=== PATIENT | male | born 1965 | race Caucasian/White ===

== ENCOUNTER → 2018-04-06 10:17 | Outpatient (CLI) | payer BC ==
[2010-12-01 22:05] VITALS: BMI 31.2
== END | disposition home or self-care (01) ==
LOC: D.US 10:17
DX: R22.41 Localized swelling, mass and lump, right lower limb (principal)

== ENCOUNTER 2019-04-20 01:46 | Inpatient (IN) | payer OTHER ==
[~2019-04-20] VITALS: Ht 170.2 cm; Wt 81.8 kg
[2019-04-20] MEDS ORDERED: ZOCOR80 MG PO (02:02)
[2019-04-20] MEDS ORDERED: GLUCOPHAGE1000 MG PO (02:02)
[2019-04-20] MEDS ORDERED: FENOGLIDE40 MG PO (02:03)
--- NOTE | 2019-04-20 02:40 | NUR ---
PT LEFT UNIT VIA WHEELCHAIR FOR ORDERED CT AT THIS TIME.
[2019-04-20 02:43] LABS: BASOPHILS 0.1 % (0-2); EOSINOPHILS 0.9 % (0-7); HEMATOCRIT 40.3 % (42.0-54.0); IMMATURE GRANULOCYTES 1.3 % (0-5); MCH 31.3 pg (26.0-34.0); MCHC 34.7 g/dL (31.0-37.0); MEAN PLATELET VOLUME 10.8 fL (7.4-10.4); MONOCYTES 3.7 % (2-11); RBC 4.48 10x6/uL (4.20-6.10); RDW 13.4 % (11.5-14.5); WBC 11.3 10x3/uL (4.8-10.8)
[2019-04-20 02:48] LABS: PLATELET COUNT 238 10x3/uL (130-400)
[2019-04-20 02:52] LABS: CALC OSMOLALITY 292 mosm/kg (275-300); CALCIUM 9.4 mg/dL (8.5-10.1); CARBON DIOXIDE 24.5 mmol/L (21.0-32.0); CHLORIDE - SERUM 99 mmol/L (98-107); CREATININE - SERUM 1.3 mg/dL (0.6-1.3); POTASSIUM - SERUM 4.5 mmol/L (3.5-5.1); SODIUM 137 mmol/L (136-145); UREA NITROGEN 20 mg/dL (7-18); eGFR NON AFRICAN AMERICAN 61 mL/min (90-120)
--- NOTE | 2019-04-20 02:53 | NUR ---
URINE SENT TO LAB
[2019-04-20 02:55] LABS: GLUCOSE 387 mg/dL (74-106)
[2019-04-20 03:01] LABS: ALBUMIN 4.3 g/dL (3.4-5.0); ALKALINE PHOSPHATASE 72 U/L (30-120); ALT (SGPT) 33 U/L (10-68); AMYLASE - SERUM 63 U/L (25-115); BILIRUBIN - TOTAL 0.62 mg/dL (0.2-1.3); LIPASE 597 U/L (73-393); PROTEIN - SERUM 7.9 g/dL (6.4-8.2); TROPONIN-I < 0.017 ng/mL (0.000-0.060)
[2019-04-20] MEDS ORDERED: ZOFRAN4 MG PO (03:22)
[2019-04-20] MEDS ORDERED: NORCO-7.51 TAB PO (03:22)
[2019-04-20 03:24] LABS: APPEARANCE CLEAR (CLEAR); BILIRUBIN NEGATIVE (NEGATIVE); COLOR YELLOW (YELLOW); GLUCOSE 1000 mg/dL (NEGATIVE); KETONE NEGATIVE (NEGATIVE); NITRITE NEGATIVE (NEGATIVE); PROTEIN NEGATIVE (NEGATIVE); UROBILINOGEN NORMAL (NORMAL)
--- NOTE | 2019-04-20 03:36 | NUR ---
FSBS 338
[2019-04-20 04:38] LABS: INR 0.9 (0.85-1.17); PROTIME 12.1 SECONDS (11.6-15.0)
[2019-04-20] MEDS ORDERED: ZYLOPRIM100 MG PO (05:22)
[2019-04-20] MEDS ORDERED: LISINOPRIL5 MG PO (05:22)
[2019-04-20 05:23] VITALS: BP 133/74; BMI 27.3
--- NOTE | 2019-04-20 05:40 | NUR ---
RECIEVED REPORT FROM ER NURSE, PT ARRIVED BY WHEELCHAIR, SPOUSE AT BEDSIDE. VSS, AAOX4, NO S/S OF PAIN OF DISTRESS. PT DENIES ANY N/V AT THIS TIME. DENIES ABD PAIN. ALTHOUGH PT STATES HE FEELS PRESSURE/ACHING ON PALPATION OF RLQ. ADM ASSESSMENT COMP. PT DENIES ANY FURTHER NEEDS AT THIS TIME. WILL CPOC. CL WITHIN REACH, BED IN LOW, SR UP X2. PT ORIENTED TO THE ROOM.
[2019-04-20 09:09] VITALS: BP 147/86
[2019-04-20 12:34] VITALS: BP 125/77
[2019-04-20 14:24] VITALS: BMI 27.2
[2019-04-20 16:45] VITALS: BP 125/80
--- NOTE | 2019-04-20 19:47 | NUR ---
EVENING ROUND COMPLETED. VSS, AAOX4, NO S/S OF PAIN OR DISTRESS. PT NPO. PT PT DENIES ANY FURTHER NEEDS AT THIS TIME. WILL CTM. CL WITHIN REACH.
[2019-04-20 20:00] VITALS: BP 118/78
[2019-04-21] VITALS: BP 127/74
[2019-04-21 04:00] VITALS: BP 128/79
[2019-04-21 05:13] LABS: BASOPHILS 0.1 % (0-2); EOSINOPHILS 0.6 % (0-7); HEMATOCRIT 38.2 % (42.0-54.0); HEMOGLOBIN 12.4 g/dL (13.5-17.5); IMMATURE GRANULOCYTES 0.5 % (0-5); LYMPHOCYTES 17.9 % (15-50); MCH 29.8 pg (26.0-34.0); MCHC 32.5 g/dL (31.0-37.0); MCV 91.8 fL (80.0-100.0); MEAN PLATELET VOLUME 10.4 fL (7.4-10.4); MONOCYTES 6.5 % (2-11); NEUTROPHILS 74.4 % (40-80); PLATELET COUNT 209 10x3/uL (130-400); RBC 4.16 10x6/uL (4.20-6.10); RDW 13.7 % (11.5-14.5); WBC 9.4 10x3/uL (4.8-10.8)
[2019-04-21 05:46] LABS: ALBUMIN 3.5 g/dL (3.4-5.0); ANION GAP 13.3 mmol/L (8-16); BILIRUBIN - TOTAL 0.64 mg/dL (0.2-1.3); CALCIUM 8.7 mg/dL (8.5-10.1); CARBON DIOXIDE 27.1 mmol/L (21.0-32.0); MAGNESIUM - SERUM 1.9 mg/dL (1.8-2.4); POTASSIUM - SERUM 4.4 mmol/L (3.5-5.1); PROTEIN - SERUM 6.8 g/dL (6.4-8.2)
[2019-04-21 05:48] LABS: CREATININE - SERUM 1.7 mg/dL (0.6-1.3)
[2019-04-21] MEDS ORDERED: GLYBURIDE5 M1 PO (08:01)
[2019-04-21] MEDS ORDERED: ZOCOR80 MG PO (08:02)
[2019-04-21 10:20] VITALS: BP 117/73
[2019-04-21 12:11] LABS: AMYLASE - SERUM 34 U/L (25-115); LIPASE 113 U/L (73-393)
[2019-04-21 13:49] VITALS: BP 142/78
[2019-04-21 14:01] VITALS: Ht 170.2 cm; Wt 81.8 kg
[2019-04-21 15:23] VITALS: BP 100/64
--- NOTE | 2019-04-21 15:28 | NUR ---
PT BACK TO ROOM FROM PACU ON BED. POST OP STABILITY VITALS DONE. FAMILY AT BEDSIDE. PT WITHOUT PAIN OR NAUSEA AT PRESENT. INSTRUCTED ON DIET AND POSSIBLE DC PLANS.
--- NOTE | 2019-04-21 19:10 | NUR ---
BEDSIDE REPORT RECEIVED FROM DAY SHIFT, PT CARE ASSUMED. INTRODUCED SELF AND WROTE NAME ON BOARD. PT LYING IN BED, WATCHING TV, AAOX4. DENIES ANY NEEDS AT THIS TIME. BED IN LOWEST POSITION, SR X1, CALL LIGHT WITHIN REACH. WILL CONTINUE TO MONITOR.
[2019-04-21 20:00] VITALS: BP 129/74
[2019-04-22] VITALS: BP 114/70
[2019-04-22 04:00] VITALS: BP 117/68
[2019-04-22 05:24] LABS: ALBUMIN 3.3 g/dL (3.4-5.0); ANION GAP 9.5 mmol/L (8-16); BASOPHILS 0 % (0-2); BILIRUBIN - TOTAL 0.81 mg/dL (0.2-1.3); CALCIUM 8.7 mg/dL (8.5-10.1); CARBON DIOXIDE 28.5 mmol/L (21.0-32.0); EOSINOPHILS 2.2 % (0-7); HEMATOCRIT 37.3 % (42.0-54.0); HEMOGLOBIN 12.4 g/dL (13.5-17.5); IMMATURE GRANULOCYTES 0.8 % (0-5); LYMPHOCYTES 28.4 % (15-50); MCH 30.8 pg (26.0-34.0); MCHC 33.2 g/dL (31.0-37.0); MCV 92.8 fL (80.0-100.0); MEAN PLATELET VOLUME 10.3 fL (7.4-10.4); MONOCYTES 6.2 % (2-11); NEUTROPHILS 62.4 % (40-80); PLATELET COUNT 213 10x3/uL (130-400); PROTEIN - SERUM 6.9 g/dL (6.4-8.2); RBC 4.02 10x6/uL (4.20-6.10); RDW 13.6 % (11.5-14.5); WBC 6.5 10x3/uL (4.8-10.8)
[2019-04-22 05:29] LABS: CREATININE - SERUM 1.2 mg/dL (0.6-1.3)
--- NOTE | 2019-04-22 08:41 | NUR ---
PT LAYING SUPINE, RR EVEN AND UNLABORED. DENIES NEEDS OR PAIN AT THIS TIME. BED IN LOWEST POSITION. CALL LIGHT WITHIN REACH. WILL CONTINUE TO MONITOR.
[2019-04-22 09:52] VITALS: BP 110/71
[2019-04-22 12:00] VITALS: BP 108/66
--- NOTE | 2019-04-22 15:10 | MORECARE ---
CASE MANAGEMENT DISCHARGE SUMMARY PATIENT: ANGELY FARRAR UNIT: [id number] ADM DATE: 04/20/19 AGE: 54 : 63 SEX: M ROOM/BED: D.2139 AUTHOR: ADONIS HERNANDEZ PHYSICIAN: REFERRING PHYSICIAN: CHRISTOS GREEN MD DATE OF SERVICE: 04/22/19 Discharge Plan Patient Name: ANGELY FARRAR Facility: [facility]:[place] : 1965 Planned Disposition: Anticipated Discharge Date: Discharge Date: Expected LOS: Initial Reviewer: [email or web address] Initial Review Date: 04/22/2019 Generated: 04/22/19 4:10 pm Comments DCP- Discharge Planning Updated by [email or web address]: Emerita Maldonado on 04/22/19 2:[address] Patient Name: ANGELY FARRAR Admission Status: ER Accout number: [id number] Admission Date: 04-20-2019 : 1965 Admission Diagnosis: Attending: CHRISTOS GREEN Current LOS: 2 Anticipated DC Date: Planned Disposition: Primary Insurance: [facility] PPO Discharge Planning Comments: CM MET WITH PATIENT ABOUT DC PLANNING/NEEDS AFTER OBTAINING VERBAL CONSENT. PATIENT PLANS TO DC TO HOME WITH . AT BEDSIDE, DENIES NEEDS FOR HH , REHAB OR EQUIPMENT. Dolphin Trainer: Emerita Maldonado DCPIA - Discharge Planning Initial Assessment Updated by [email or web address]: Emerita Maldonado on 04/22/19 3:06 pm * Is the patient Alert and Oriented? Yes * PCP ALLEGRA * [facility] * Equipment None * Community resources currently utilized None * Additional services required to return to the preadmission environment? No * Can the patient safely return to the preadmission environment? Yes * Has this patient been hospitalized within the prior 30 days at any hospital? No Patient Name: ANGELY FARRAR Page 99977 at 1510 All edits/amendments must be made on the electronic document DICTATION DATE: 04/22/19 1510 TELESALES SPECIALIST: CINTHIA 04/22/19 1510 RPT#: [id number] DC DATE: STATUS: ADM IN [facility] [address] [place] [address] END OF REPORT
--- NOTE | 2019-04-22 15:59 | OP ---
PATIENT NAME: ANGELY FARRAR MEDICAL RECORD: [id number] :63 LOCATION:D.M2 D.2139 ADMISSION DATE:04/20/19 SURGEON: LUCAS CAMERON MD DATE OF OPERATION: 04/20/2019 SURGEON: Lucas Cameron MD ANESTHESIA: General anesthesia by Jessica Montesinos CRNA. DIAGNOSIS: Right proximal ureteral stone, 7 mm. PROCEDURE: Cystoscopy, right retrograde pyelogram, right ureteral stent insertion 6-Vincentian x 24 cm with string attached. BLOOD LOSS: None. FINDINGS: Radiolucent right ureteral stone at the L3-L4 interspace seen on the retrograde pyelogram. There were single ureteral orifices bilaterally with no bladder tumors seen. Nonobstructive prostate. CLINICAL HISTORY: This is a 54-year-old male, who presented through the Emergency Room with acute right flank pain for the past 2 days. He has nausea and vomiting, but no fever. There is no prior history of kidney stones. A CT scan shows a 7-mm stone in the right proximal ureter causing hydronephrosis proximally. There is also an enhancing lower pole left renal mass 2.6 cm in diameter, which is highly suggestive of a renal cell carcinoma on the left side. Arrangements have been made to have this left renal mass biopsied and treated with cryoablation. He comes now to have the right ureteral stone dealt with. HE IS ALLERGIC TO PENICILLIN. He was given Levaquin IV telephoner to the OR. DESCRIPTION OF PROCEDURE: The patient was given induction of general anesthesia. He was then placed into lithotomy position and prepped and draped. Cystoscopy was performed using a 20-Vincentian cystoscope with 30-degree lens. Prostate is nonobstructive. There were no urethral strictures. Going into the right ureteral orifice, community aide fluoroscopy could not find any radiodense stones. Diluted contrast was injected for retrograde pyelogram and the stone was outlined as a filling defect in the dye column. We then inserted a sensor wire through the lumen of the ureteral catheter up into the renal pelvis. Once the wire was in correct position, the ureteral catheter was removed entirely. Over the wire, we inserted the 6-Vincentian x 24-cm ureteral stent. Once the stent was in correct position, the wire was withdrawn entirely. The distal end of the stent was pushed into the bladder using a pusher. The bladder was then emptied through the cystoscope sheath and the scope was removed. The string on the distal end of the stent is maintained. It was tied to itself in a knot and cut shorter. It hangs out of the urethra. As the stone is radiolucent on plain films, but visible on CT scan, this is characteristic of uric acid stone. I will get him started on potassium citrate urinary alkalinization to dissolve the uric acid stone. He is sent home on potassium citrate 20 mEq p.o. t.i.d., Flomax, and [place] 5/325 times 20 tablets p.r.n. I will see him in followup next week to check on the urine pH. TRANSINT:[id number] Voice Confirmation ID: [id number] DOCUMENT ID: [id number] OPERATIVE REPORT [id number] ANGELY FARRAR ROBERT S MD at 1559 CC: [id number] DICTATION DATE: 04/21/19 1443 SUPERVISOR ROLLING ROOM: 04/22/19 0009 ADM IN [facility] [address] [place] [address]
[2019-04-22 17:04] VITALS: BP 133/71
[2019-04-22] MEDS ORDERED: UROCIT-K10 MEQ PO (17:09)
[2019-04-22] MEDS ORDERED: FLOMAX0.4 MG PO (17:10)
[2019-04-22] MEDS ORDERED: HYDROCODON-ACE1 EAC7 PO (17:10)
--- NOTE | 2019-04-22 18:03 | NUR ---
D/C INSTRUCTIONS REVIEWED WITH PT. VERBALIZED UNDERSTANDING AND NO FURTHER QUESTIONS AT THIS TIME. IV D/C WITH CATHETER TIP INTACT. LEFT VIA WHEELCHAIR WITH ALL BELONGINGS TO PERSONAL VEHICLE. SPOUSE DRIVING.
--- NOTE | 2019-04-23 11:44 | MORECARE ---
CASE MANAGEMENT DISCHARGE SUMMARY PATIENT: ANGELY FARRAR UNIT: [id number] ADM DATE: 04/20/19 AGE: 54 : 63 SEX: M ROOM/BED: D.2139 AUTHOR: ADONIS HERNANDEZ PHYSICIAN: REFERRING PHYSICIAN: CHRISTOS GREEN MD DATE OF SERVICE: 04/23/19 Discharge Plan Patient Name: ANGELY FARRAR Facility: [facility]:[place] : 1965 Planned Disposition: Anticipated Discharge Date: Discharge Date: 04/22/2019 Expected LOS: Initial Reviewer: [id number] Initial Review Date: 04/22/2019 Generated: 04/23/19 12:43 pm Comments DCP- Discharge Planning Updated by [email or web address]: Emerita Maldonado on 04/22/19 2:[address] Patient Name: ANGELY FARRAR Admission Status: ER Accout number: [id number] Admission Date: 04-20-2019 : 1965 Admission Diagnosis: Attending: CHRISTOS GREEN Current LOS: 2 Anticipated DC Date: Planned Disposition: Primary Insurance: [employer] PPO Discharge Planning Comments: CM MET WITH PATIENT ABOUT DC PLANNING/NEEDS AFTER OBTAINING VERBAL CONSENT. PATIENT PLANS TO DC TO HOME WITH . AT BEDSIDE, DENIES NEEDS FOR HH , REHAB OR EQUIPMENT. Vice President Investor Relations: Emerita Maldonado DCPIA - Discharge Planning Initial Assessment Updated by [email or web address]: Emerita Maldonado on 04/22/19 3:06 pm * Is the patient Alert and Oriented? Yes * PCP ALLEGRA * [facility] * Equipment None * Community resources currently utilized None * Additional services required to return to the preadmission environment? No * Can the patient safely return to the preadmission environment? Yes * Has this patient been hospitalized within the prior 30 days at any hospital? No Last DP export: 04/22/19 2:10 p Patient Name: ANGELY FARRAR Page 67798 at 1144 All edits/amendments must be made on the electronic document DICTATION DATE: 04/23/19 1143 TYPE MAPPER: CINTHIA 04/23/19 1143 RPT#: [id number] DC DATE:04/22/19 STATUS: DIS IN [facility] [address] [place] [address] END OF REPORT
== END 2019-04-22 18:09 | disposition home or self-care (01) | DRG 661 ==
LOC: D.ER 01:46 → D.M2 03:52
PROVIDERS: Emergency Medicine; Family Medicine; Urology; ADMIT Family Medicine; ATTEND Family Medicine
PROC: 0T768DZ Dilation of Right Ureter with Intraluminal Device, Via Natural or Artificial Opening Endoscopic (ICD-10-PCS; principal; 2019-04-21 14:30)
PROC: BT1D1ZZ Fluoroscopy of Right Kidney, Ureter and Bladder using Low Osmolar Contrast (ICD-10-PCS; 2019-04-21 14:30)
DX: N13.9 Obstructive and reflux uropathy, unspecified (principal); E11.65 Type 2 diabetes mellitus with hyperglycemia; D64.9 Anemia, unspecified; E78.5 Hyperlipidemia, unspecified; N28.89 Other specified disorders of kidney and ureter

== ENCOUNTER → 2019-04-26 18:08 | Outpatient (CLI) | payer OTHER ==
[2019-04-21 14:01] VITALS: BMI 27.2
[~2019-04-26 18:08] MED LIST: FENOGLIDE40 MG PO; FLOMAX0.4 MG PO; GLUCOPHAGE1000 MG PO; GLYBURIDE5 M1 PO; HYDROCODON-ACE1 EAC7 PO; LISINOPRIL5 MG PO; NORCO-7.51 TAB PO; UROCIT-K10 MEQ PO; ZOCOR80 MG PO; ZOFRAN4 MG PO; ZYLOPRIM100 MG PO
== END | disposition home or self-care (01) ==
LOC: D.LABREF 18:08
PROVIDERS: ATTEND Urology
DX: N39.0 Urinary tract infection, site not specified (principal)

== ENCOUNTER 2019-05-24 18:33 | Inpatient (IN) | payer OTHER ==
[~2019-05-24] VITALS: Ht 170.2 cm; Wt 79.4 kg
[2019-05-24 19:26] LABS: BASOPHILS 0.2 % (0-2); EOSINOPHILS 0 % (0-7); HEMATOCRIT 32.5 % (42.0-54.0); HEMOGLOBIN 10.7 g/dL (13.5-17.5); IMMATURE GRANULOCYTES 0.5 % (0-5); LYMPHOCYTES 12.5 % (15-50); MCH 29.5 pg (26.0-34.0); MCHC 32.9 g/dL (31.0-37.0); MCV 89.5 fL (80.0-100.0); MEAN PLATELET VOLUME 11.1 fL (7.4-10.4); MONOCYTES 11.9 % (2-11); NEUTROPHILS 74.9 % (40-80); PLATELET COUNT 214 10x3/uL (130-400); RBC 3.63 10x6/uL (4.20-6.10); RDW 15.1 % (11.5-14.5); WBC 6.1 10x3/uL (4.8-10.8)
[2019-05-24 19:43] LABS: CALC OSMOLALITY 260 mosm/kg (275-300); CARBON DIOXIDE 22.4 mmol/L (21.0-32.0); CHLORIDE - SERUM 94 mmol/L (98-107); CREATININE - SERUM 1.1 mg/dL (0.6-1.3); GLUCOSE 215 mg/dL (74-106); POTASSIUM - SERUM 4.9 mmol/L (3.5-5.1); SODIUM 125 mmol/L (136-145); UREA NITROGEN 21 mg/dL (7-18); eGFR NON AFRICAN AMERICAN 74 mL/min (90-120)
[2019-05-24 19:57] LABS: ALBUMIN 2.8 g/dL (3.4-5.0); ALKALINE PHOSPHATASE 79 U/L (30-120); ALT (SGPT) 37 U/L (10-68); BILIRUBIN - TOTAL 0.78 mg/dL (0.2-1.3); LIPASE 186 U/L (73-393); MAGNESIUM - SERUM 2.1 mg/dL (1.8-2.4); PRO BNP 485 pg/mL (0-125); PROTEIN - SERUM 8.2 g/dL (6.4-8.2); TROPONIN-I < 0.017 ng/mL (0.000-0.060)
[2019-05-24 20:53] VITALS: BP 116/75
[2019-05-24 21:07] LABS: BACTERIA MANY /hpf (NEGATIVE); BILIRUBIN NEGATIVE (NEGATIVE); EPITHELIAL CELLS 0-5 /hpf (0-5); GLUCOSE 500 mg/dL (NEGATIVE); KETONE NEGATIVE (NEGATIVE); NITRITE POSITIVE (NEGATIVE); UROBILINOGEN NORMAL (NORMAL); WHITE CELLS - URINE 0-5 /hpf (NEGATIVE)
[2019-05-24 21:11] LABS: UDS - AMPHET NEGATIVE QUAL (NEGATIVE); UDS - BARB NEGATIVE QUAL (NEGATIVE); UDS - BENZO NEGATIVE QUAL (NEGATIVE); UDS - COCAINE NEGATIVE QUAL (NEGATIVE); UDS - OPIATE POSITIVE QUAL (NEGATIVE); UDS - PCP NEGATIVE QUAL (NEGATIVE); UDS - THC NEGATIVE QUAL (NEGATIVE)
--- NOTE | 2019-05-24 22:10 | NUR ---
PT FROM ER VIA STRECTHER, PT AMBULATES TO BED, AAO X 3, RESP EVEN AND UNLABORED. NO DISTRESS NOTED. CL IN REACH, SR UP X 12.
[2019-05-25] VITALS (7 sets, daily range): BP systolic 91–119; BP diastolic 55–76; Ht 170.2 cm; Wt 79.4 kg
[2019-05-25 05:53] LABS: BASOPHILS 0 % (0-2); EOSINOPHILS 0.2 % (0-7); HEMATOCRIT 28.6 % (42.0-54.0); IMMATURE GRANULOCYTES 0.7 % (0-5); LYMPHOCYTES 10.5 % (15-50); MCH 28.9 pg (26.0-34.0); MCHC 31.5 g/dL (31.0-37.0); MEAN PLATELET VOLUME 10.2 fL (7.4-10.4); MONOCYTES 11.4 % (2-11); NEUTROPHILS 77.2 % (40-80); RBC 3.11 10x6/uL (4.20-6.10); RDW 15.2 % (11.5-14.5); WBC 5.8 10x3/uL (4.8-10.8)
[2019-05-25 06:37] LABS: % SATURATION 6 % (15-55); IRON 12 ug/dl (35-150); TOTAL IRON BIND CAPACITY 179 ug/dl (260-445); UNSAT IRON BIND CAPACITY 167 ug/dl (150-375)
[2019-05-25 06:53] LABS: PLATELET COUNT 287 10x3/uL (130-400)
[2019-05-25 07:00] LABS: INR 1.13 (0.85-1.17); PROTIME 14.4 SECONDS (11.6-15.0)
[2019-05-25 07:19] LABS: CALCIUM 7.9 mg/dL (8.5-10.1); CARBON DIOXIDE 24.8 mmol/L (21.0-32.0); CREATININE - SERUM 1.2 mg/dL (0.6-1.3); MAGNESIUM - SERUM 2.1 mg/dL (1.8-2.4); PHOSPHOROUS 2.3 mg/dL (2.5-4.9)
[2019-05-25 07:20] LABS: ANION GAP 14.1 mmol/L (8-16); POTASSIUM - SERUM 3.9 mmol/L (3.5-5.1)
--- NOTE | 2019-05-25 10:04 | MORECARE ---
CASE MANAGEMENT DISCHARGE SUMMARY PATIENT: ANGELY FARARR UNIT: [id number] ADM DATE: 05/24/19 AGE: 54 : 63 SEX: M ROOM/BED: D.2102 AUTHOR: ADONIS HERNANDEZ PHYSICIAN: REFERRING PHYSICIAN: HERLINDA VALENCIA MD DATE OF SERVICE: 05/25/19 Discharge Plan Patient Name: ANGELY FARRAR Facility: [facility]:[place] : 1965 Planned Disposition: Home Anticipated Discharge Date: Discharge Date: Expected LOS: Initial Reviewer: [email or web address] Initial Review Date: 05/25/2019 Generated: 05/25/19 11:04 am DCPIA - Discharge Planning Initial Assessment Updated by [email or web address]: Jitendra Low on 05/25/19 10:03 am * Is the patient Alert and Oriented? Yes * How many steps to enter\exit or inside your home? * PCP DR. DINH * Pharmacy [address] * Preadmission Environment Home with Family * ADLs Independent * Equipment None * Other Equipment NO MEDICAL EQUIPMENT PROVIDER PREFERENCE * List name and contact numbers for known caregivers / representatives who currently or will assist patient after discharge: SAEID FARRAR, SPOUSE, * Verbal permission to speak to the caregivers and representatives has been obtained from the patient. N/A * Community resources currently utilized None * Please name any agencies selected above. NONE * Additional services required to return to the preadmission environment? No * Can the patient safely return to the preadmission environment? Yes * Has this patient been hospitalized within the prior 30 days at any hospital? No Patient Name: ANGELY FARRAR Page 00525 at 1004 All edits/amendments must be made on the electronic document DICTATION DATE: 05/25/19 1004 GEODETIC COMPUTATOR: CINTHIA 05/25/19 1004 RPT#: [id number] DC DATE: STATUS: ADM IN [facility] [address] [place] [address] END OF REPORT
--- NOTE | 2019-05-25 10:12 | MORECARE ---
CASE MANAGEMENT DISCHARGE SUMMARY PATIENT: ANGELY FARRAR UNIT: [id number] ADM DATE: 05/24/19 AGE: 54 : 63 SEX: M ROOM/BED: D.2102 AUTHOR: DAVID,DOC PHYSICIAN: REFERRING PHYSICIAN: HERLINDA VALENCIA MD DATE OF SERVICE: 05/25/19 Discharge Plan Patient Name: ANGELY FARRAR Facility: [facility]:[place] : 1965 Planned Disposition: Home Anticipated Discharge Date: Discharge Date: Expected LOS: Initial Reviewer: [email or web address] Initial Review Date: 05/25/2019 Generated: 05/25/19 11:12 am Comments DCP- Discharge Planning Updated by [email or web address]: Jitendra Low on 05/25/19 9:[address] Patient Name: ANGELY FARRAR Admission Status: ER Accout number: [id number] Admission Date: 05-24-2019 : 1965 Admission Diagnosis: Attending: HERLINDA VALENCIA Current LOS: 1 Anticipated DC Date: Planned Disposition: Home Primary Insurance: [employer] PPO Discharge Planning Comments: CM MET WITH PT IN ROOM TO DISCUSS DISCHARGE PLANNING AND NEEDS. PT REPORTS LIVING AT HOME INDEPENDENTLY WITH HIS SPOUSE. PT HAS NO MEDICAL EQUIPMENT AND NO OUTSIDE SERVICES ASSISTING IN THE HOME. CM DISCUSSED AVAILABILITY OF HOME HEALTH, REHAB SERVICES AND MEDICAL EQUIPMENT. PT DENIES DISCHARGE NEEDS, REPORTS HIS WILL PICK HIM UP FOR DISCHARGE HOME. PT PLANS TO DISCHARGE HOME WITH SPOUSE, HAS NO ANTICIPATED NEEDS AT THIS TIME. FAMILY TO TRANSPORT HOME AT DISCHARGE. CM TO FOLLOW AND ASSIST IF NEEDED. Research Physicist: Jitendra Low DCPIA - Discharge Planning Initial Assessment Updated by [email or web address]: Jitendra Low on 05/25/19 10:03 am * Is the patient Alert and Oriented? Yes * How many steps to enter\exit or inside your home? * PCP DR. DINH * Pharmacy [address] * Preadmission Environment Home with Family * ADLs Independent * Equipment None * Other Equipment NO MEDICAL EQUIPMENT PROVIDER PREFERENCE * List name and contact numbers for known caregivers / representatives who currently or will assist patient after discharge: SAEID FARRAR, SPOUSE, * Verbal permission to speak to the caregivers and representatives has been obtained from the patient. N/A * Community resources currently utilized None * Please name any agencies selected above. NONE * Additional services required to return to the preadmission environment? No * Can the patient safely return to the preadmission environment? Yes * Has this patient been hospitalized within the prior 30 days at any hospital? No Last DP export: 05/25/19 9:04 a Patient Name: ANGELY FARRAR Page [phone] at 1012 All edits/amendments must be made on the electronic document DICTATION DATE: 05/25/19 1012 AGING BOX HAND: CINTHIA 05/25/19 1012 RPT#: [id number] DC DATE: STATUS: ADM IN [facility] [address] [place] [address] END OF REPORT
--- NOTE | 2019-05-25 23:56 | NUR ---
PATIENT RESTING IN BED WITH NO STATED NEEDS. ALERT AND ORENTED X3. IV TO RIGHT HAND, BED LOW CALL LIGHT AND WATER IN REACH. IV WITH NO REDNESS NO C/O PAIN AT SITE.
[2019-05-26] VITALS (7 sets, daily range): BP systolic 89–114; BP diastolic 54–73
[2019-05-26 04:24] LABS: BASOPHILS 0.2 % (0-2); EOSINOPHILS 0.9 % (0-7); HEMATOCRIT 25.5 % (42.0-54.0); HEMOGLOBIN 7.9 g/dL (13.5-17.5); IMMATURE GRANULOCYTES 0.9 % (0-5); LYMPHOCYTES 26.2 % (15-50); MCH 28.8 pg (26.0-34.0); MCV 93.1 fL (80.0-100.0); MEAN PLATELET VOLUME 9.8 fL (7.4-10.4); MONOCYTES 7.7 % (2-11); NEUTROPHILS 64.1 % (40-80); PLATELET COUNT 296 10x3/uL (130-400); RBC 2.74 10x6/uL (4.20-6.10); RDW 15.5 % (11.5-14.5); WBC 4.4 10x3/uL (4.8-10.8)
[2019-05-26 04:42] LABS: ANION GAP 13.3 mmol/L (8-16); CALCIUM 7.9 mg/dL (8.5-10.1); CARBON DIOXIDE 23.8 mmol/L (21.0-32.0); CREATININE - SERUM 1.2 mg/dL (0.6-1.3); PHOSPHOROUS 2.4 mg/dL (2.5-4.9); POTASSIUM - SERUM 4.1 mmol/L (3.5-5.1)
--- NOTE | 2019-05-26 07:48 | NUR ---
ROUNDING DONE WITH BIJAN HAVING NO NEEDS VOICED AT THIS TIME. ON ROOM AIR. SITTING IN CHAIR WITH IV SEEN INFUSING TO RIGHT HAND WITHOUT PROBLEMS. ON EP, LABS ARE WNL EXCEPT PHOS WHICH BEEN COVERED TO START WITH. ON ROOM AIR. CALL LIGHT IN USE.
--- NOTE | 2019-05-26 08:40 | OP ---
PATIENT NAME: ANGELY FARRAR MEDICAL RECORD: [id number] :63 LOCATION:D.M2 D.2101 ADMISSION DATE:05/24/19 SURGEON: LUCAS CAMERON MD DATE OF OPERATION: 05/24/2019 SURGEON: Lucas Cameron MD ANESTHESIA: TIVA by Cole Flores CRNA. DIAGNOSES: Right pyelonephritis, retained right ureteral stent. PROCEDURE: Cystoscopy and right ureteral stent removal. FINDINGS: Retained right ureteral stent. SPECIMENS: Right ureteral stent. ESTIMATED BLOOD LOSS: None. CLINICAL HISTORY: This is a 54-year-old male with history of diabetes mellitus type 2. I initially saw him in April of 2019 when he presented with right flank pain. He had a mm stone obstructing the right UP junction at that time. He had a right ureteral stent inserted. Although, the stone could be seen on CT scan, it was invisible on fluoroscopy. He was started on alkalinization of the urine using potassium citrate to dissolve a presumed uric acid stone. His urine pH's have been in the therapeutic range when we saw him in followup. About 6 days ago, he started developing fevers and he felt unwell. He was seen by his primary care physician. He was tested for Coronavirus and found to be negative. He finally came to the Emergency Room. A CT scan of the abdomen and pelvis without and with IV contrast shows a 2.5 cm left lower pole renal mass, which is enhancing and consistent with renal cell carcinoma. We know about those lesion and he has plans to have it biopsied and treated with cryoablation. The right kidney shows a patchy uptake of the contrast consistent with pyelonephritis. There only punctate stones left on the CT scan. The stent is in correct position. His urine is consistent with an infection showing nitrites positive, leukocyte esterase positive, glucose and bacteria. I attempted to pull the stent by removing it via the string at his bedside. The string is not visible. He comes now to have cystoscopy to have the stent removed. It is an infected foreign body. He is already on Levaquin IV on the floor and therefore, we did not give him any further antibiotics in the OR. DESCRIPTION OF PROCEDURE: The patient was given IV sedation. He was placed into lithotomy position and prepped and draped. The 21-Kazakh cystoscope with 30-degree lens was used for visualization. The string was found in the prostatic urethra and the bladder neck. We put a grasping forceps and removed the stent entirely. The stent was sent to pathology for identification only. The scope was removed entirely. The patient was awakened and brought to the recovery room. TRANSINT:[id number] Voice Confirmation ID: [id number] DOCUMENT ID: [id number] OPERATIVE REPORT [id number] ANGELY FARRAR, LUCAS Alvares MD at 0840 CC: [id number] DICTATION DATE: 05/25/19 1213 FLAME CUTTING SUPERVISOR: 05/25/19 1240 ADM IN [facility] [address] [place] [address]
--- NOTE | 2019-05-26 09:50 | NUR ---
PT TOOK SHOWER BY SELF.
[2019-05-26 13:18] LABS: BILIRUBIN NEGATIVE (NEGATIVE); GLUCOSE 1000 mg/dL (NEGATIVE); KETONE NEGATIVE (NEGATIVE); NITRITE NEGATIVE (NEGATIVE); SPECIFIC GRAVITY 1.005 (1.005-1.020); UROBILINOGEN NORMAL (NORMAL)
[2019-05-26 13:25] LABS: BACTERIA FEW /hpf (NEGATIVE); EPITHELIAL CELLS OCC /hpf (0-5); RED CELLS - URINE 0-5 /hpf (0-5); WHITE CELLS - URINE 0-5 /hpf (NEGATIVE)
--- NOTE | 2019-05-26 14:43 | NUR ---
VS STABLE. THIS NURSE AND MACIE MUHAMMAD HUNG 1 UNIT OF PRBC. RN SPIKED PRBC BAG. BLOOD CONSENT ON CHART. PT AWARE OF S/S OF PRBC REACTION AND TO NOTIFY NURSE IF ANY PROBLEMS OCCUR WHILE RECEIVING BLOOD. THIS NURSE WILL STAY AT BEDSIDE FOR FIRST 15 MIN.
--- NOTE | 2019-05-26 14:48 | NUR ---
PRBC INNFUSION STARTED AT 100ML/HR VIA RIGHT HAND 20G IV. WILL CONTINUE TO MONITOR AND STAY AT BEDSIDE FOR FIRST 15 MIN.
--- NOTE | 2019-05-26 14:53 | NUR ---
PRBC INNFUSION STARTED AT 100ML/HR VIA RIGHT HAND 20G IV. WILL CONTINUE TO MONITOR AND STAY AT BEDSIDE FOR FIRST 15 MIN.
--- NOTE | 2019-05-26 15:03 | NUR ---
PT HAS NO S/S OF PRBC REACTION. VS STBALE. INCREASED TO 125ML/HR. WILL COTNINUE TO MONITOR.
--- NOTE | 2019-05-26 17:04 | NUR ---
ASSUMED CARE FOR THIS PT. PT IS SITTING UP IN BEDSIDE CHAIR EATING HIS DINNER TRAY. BLOOD INFUSING VIA R.HAND PIV. PT DENIES ANY CURRENT PAIN OR NEEDS AT THIS TIME. CL IN REACH. WILL CTM.
--- NOTE | 2019-05-26 17:45 | NUR ---
BLOOD TRANSFUSION COMPLETED. NO REACTION NOTED. PT RESTING QUIETLY WATCHING TV. DENIES ANY CURRENT PAIN OR NEEDS AT THIS TIME. CL IN REACH, BED IN LOWEST. WILL CPOC.
--- NOTE | 2019-05-26 19:10 | NUR ---
BEDSIDE REPORT RECEIVED FROM DAY SHIFT, PT CARE ASSUMED. INTRODUCED SELF AND WROTE NAME ON BOARD. PT SITTING IN CHAIR AT BEDSIDE, WATCHING TV, AAOX4. DENIES ANY NEEDS AT THIS TIME. BED IN LOWEST POSITION, CALL LIGHT AND URINAL WITHIN REACH. WILL CONTINUE TO MONITOR.
[2019-05-27] VITALS: BP 110/68
[2019-05-27 05:03] LABS: BASOPHILS 0.2 % (0-2); EOSINOPHILS 2.1 % (0-7); HEMATOCRIT 28.7 % (42.0-54.0); HEMOGLOBIN 8.9 g/dL (13.5-17.5); IMMATURE GRANULOCYTES 1.5 % (0-5); LYMPHOCYTES 25.7 % (15-50); MCH 28.9 pg (26.0-34.0); MCV 93.2 fL (80.0-100.0); MEAN PLATELET VOLUME 9.8 fL (7.4-10.4); MONOCYTES 7.5 % (2-11); RBC 3.08 10x6/uL (4.20-6.10); RDW 16.1 % (11.5-14.5); WBC 4.8 10x3/uL (4.8-10.8)
[2019-05-27 05:13] LABS: PLATELET COUNT 398 10x3/uL (130-400)
[2019-05-27 05:22] LABS: ANION GAP 11.6 mmol/L (8-16); CALCIUM 8.5 mg/dL (8.5-10.1); CARBON DIOXIDE 24.9 mmol/L (21.0-32.0); CREATININE - SERUM 1.1 mg/dL (0.6-1.3); MAGNESIUM - SERUM 2.1 mg/dL (1.8-2.4); PHOSPHOROUS 3.3 mg/dL (2.5-4.9); POTASSIUM - SERUM 4.5 mmol/L (3.5-5.1)
--- NOTE | 2019-05-27 08:30 | NUR ---
PT SITTING UP IN BED. DENIES NEEDS OR PAIN AT THIS TIME. CALL LIGHT WITHIN REACH. DENIES NEEDS OR PAIN AT THIS TIME. AXO. RR EVEN AND UNLABORED ON RA. VSS AT THIS TIME. BED IN LOWEST POSITION. WILL CONTINUE TO MONITOR.
[2019-05-27 08:36] VITALS: BP 106/60
[2019-05-27] MEDS ORDERED: LEVAQUIN750 MG PO (11:17)
--- NOTE | 2019-05-27 12:06 | MORECARE ---
CASE MANAGEMENT DISCHARGE SUMMARY PATIENT: ANGELY FARRAR UNIT: [id number] ADM DATE: 05/24/19 AGE: 54 : 63 SEX: M ROOM/BED: D.2102 AUTHOR: DAVID,DOC PHYSICIAN: REFERRING PHYSICIAN: HERLINDA VALENCIA MD DATE OF SERVICE: 05/27/19 Discharge Plan Patient Name: ANGELY FARRAR Facility: [facility]:[place] : 1965 Planned Disposition: Home Anticipated Discharge Date: Discharge Date: Expected LOS: Initial Reviewer: [email or web address] Initial Review Date: 05/25/2019 Generated: 05/27/19 1:06 pm Comments DCP- Discharge Planning Updated by [email or web address]: Gail Teixeira on 05/27/19 11:[address] Patient Name: ANGELY FARRAR Encounter No: [id number] : 1965 Primary Insurance: [employer] PPO Anticipated DC Date: Planned Disposition: Home External Planned Provider: : DCP follow-up note: CM SPOKE WITH PATIENT ABOUT THE NEED FOR REHAB, OR HOME HEALTH. PATIENT DENIES NEEDS. STATED HE IS SELF SUFFICIENT AT HOME, AND WILL RETURN TO HOME. Patient and family in agreement with discharge plan. No changes to plan. Case management will follow and assist as needed. Gail Teixeira MSN, RN,CM DCP- Discharge Planning Updated by [id number]: Jitendra Low on 05/25/19 9:[address] Patient Name: ANGELY FARRAR Admission Status: ER Accout number: [id number] Admission Date: 05-24-2019 : 1965 Admission Diagnosis: Attending: HERLINDA VALENCIA Current LOS: 1 Anticipated DC Date: Planned Disposition: Home Primary Insurance: [employer] PPO Discharge Planning Comments: CM MET WITH PT IN ROOM TO DISCUSS DISCHARGE PLANNING AND NEEDS. PT REPORTS LIVING AT HOME INDEPENDENTLY WITH HIS SPOUSE. PT HAS NO MEDICAL EQUIPMENT AND NO OUTSIDE SERVICES ASSISTING IN THE HOME. CM DISCUSSED AVAILABILITY OF HOME HEALTH, REHAB SERVICES AND MEDICAL EQUIPMENT. PT DENIES DISCHARGE NEEDS, REPORTS HIS WILL PICK HIM UP FOR DISCHARGE HOME. PT PLANS TO DISCHARGE HOME WITH SPOUSE, HAS NO ANTICIPATED NEEDS AT THIS TIME. FAMILY TO TRANSPORT HOME AT DISCHARGE. CM TO FOLLOW AND ASSIST IF NEEDED. Automatic Bandsaw Tender: Jitendra Low DCPIA - Discharge Planning Initial Assessment Updated by [email or web address]: Jitendra Low on 05/25/19 10:03 am * Is the patient Alert and Oriented? Yes * How many steps to enter\exit or inside your home? * PCP DR. DINH * Pharmacy [address] * Preadmission Environment Home with Family * ADLs Independent * Equipment None * Other Equipment NO MEDICAL EQUIPMENT PROVIDER PREFERENCE * List name and contact numbers for known caregivers / representatives who currently or will assist patient after discharge: SAEID FARRAR, SPOUSE, * Verbal permission to speak to the caregivers and representatives has been obtained from the patient. N/A * Community resources currently utilized None * Please name any agencies selected above. NONE * Additional services required to return to the preadmission environment? No * Can the patient safely return to the preadmission environment? Yes * Has this patient been hospitalized within the prior 30 days at any hospital? No Last DP export: 05/25/19 9:12 a Patient Name: ANGELY FARRAR Page [phone] at 1206 All edits/amendments must be made on the electronic document DICTATION DATE: 05/27/191205 GUNNER'S MATE M: CINTHIA 05/27/19 1206 RPT#: [id number] DC DATE: STATUS: ADM IN [facility] [address] [place] [address] END OF REPORT
--- NOTE | 2019-05-27 14:05 | NUR ---
RX FOR LEVAQUIN TRANSFERRED TO [facility] [address] N REQUESTED BY PT.
--- NOTE | 2019-05-27 15:21 | NUR ---
D/C INSTRUCTIONS REVIEWED WITH PT. IV D/C WITH CATHETER TIP INTACT. DENIES W/C AMBULATES WITH STEADY GAIT. LEFT WITH ALL BELONGINGS TO PERSONAL VEHICLE.
--- NOTE | 2019-05-29 08:43 | MORECARE ---
CASE MANAGEMENT DISCHARGE SUMMARY PATIENT: ANGELY FARRAR UNIT: [id number] ADM DATE: 05/24/19 AGE: 54 : 63 SEX: M ROOM/BED: D.2102 AUTHOR: DAVID,DOC PHYSICIAN: REFERRING PHYSICIAN: HERLINDA VALENCIA MD DATE OF SERVICE: 05/29/19 Discharge Plan Patient Name: ANGELY FARRAR Facility: [facility]:[place] : 1965 Planned Disposition: Home Anticipated Discharge Date: 05/27/19 Discharge Date: 05/27/2019 Expected LOS: 3 Initial Reviewer: [id number] Initial Review Date: 05/25/2019 Generated: 05/29/19 9:42 am Comments DCP- Discharge Planning Updated by [email or web address]: Gail Teixeira on 05/27/19 11:[address] Patient Name: ANGELY FARRAR Encounter No: [id number] : 1965 Primary Insurance: [employer] PPO Anticipated DC Date: Planned Disposition: Home External Planned Provider: : DCP follow-up note: CM SPOKE WITH PATIENT ABOUT THE NEED FOR REHAB, OR HOME HEALTH. PATIENT DENIES NEEDS. STATED HE IS SELF SUFFICIENT AT HOME, AND WILL RETURN TO HOME. Patient and family in agreement with discharge plan. No changes to plan. Case management will follow and assist as needed. Gail Teixeira MSN, RN,CM DCP- Discharge Planning Updated by [email or web address]: Jitendra Low on 05/25/19 9:[address] Patient Name: ANGELY FARRAR Admission Status: ER Accout number: [id number] Admission Date: 05-24-2019 : 1965 Admission Diagnosis: Attending: HERLINDA VALENCIA Current LOS: 1 Anticipated DC Date: Planned Disposition: Home Primary Insurance: [employer] PPO Discharge Planning Comments: CM MET WITH PT IN ROOM TO DISCUSS DISCHARGE PLANNING AND NEEDS. PT REPORTS LIVING AT HOME INDEPENDENTLY WITH HIS SPOUSE. PT HAS NO MEDICAL EQUIPMENT AND NO OUTSIDE SERVICES ASSISTING IN THE HOME. CM DISCUSSED AVAILABILITY OF HOME HEALTH, REHAB SERVICES AND MEDICAL EQUIPMENT. PT DENIES DISCHARGE NEEDS, REPORTS HIS WILL PICK HIM UP FOR DISCHARGE HOME. PT PLANS TO DISCHARGE HOME WITH SPOUSE, HAS NO ANTICIPATED NEEDS AT THIS TIME. FAMILY TO TRANSPORT HOME AT DISCHARGE. CM TO FOLLOW AND ASSIST IF NEEDED. Tar Distributor Operator: Jitendra Low DCPIA - Discharge Planning Initial Assessment Updated by [email or web address]: Jitendra Low on 05/25/19 10:03 am * Is the patient Alert and Oriented? Yes * How many steps to enter\exit or inside your home? * PCP DR. DINH * Pharmacy [address] * Preadmission Environment Home with Family * ADLs Independent * Equipment None * Other Equipment NO MEDICAL EQUIPMENT PROVIDER PREFERENCE * List name and contact numbers for known caregivers / representatives who currently or will assist patient after discharge: SAEID FARRAR, SPOUSE, * Verbal permission to speak to the caregivers and representatives has been obtained from the patient. N/A * Community resources currently utilized None * Please name any agencies selected above. NONE * Additional services required to return to the preadmission environment? No * Can the patient safely return to the preadmission environment? Yes * Has this patient been hospitalized within the prior 30 days at any hospital? 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
== END 2019-05-27 15:24 | disposition home or self-care (01) | DRG 699 ==
LOC: D.ER 18:33 → D.M2 21:15
PROVIDERS: Family Medicine; ADMIT Internal Medicine Nephrology; ATTEND Internal Medicine Nephrology
PROC: 0TP98DZ Removal of Intraluminal Device from Ureter, Via Natural or Artificial Opening Endoscopic (ICD-10-PCS; principal; 2019-05-24)
DX: T83.592A Infection and inflammatory reaction due to indwelling ureteral stent, initial encounter (principal); N39.0 Urinary tract infection, site not specified; C64.9 Malignant neoplasm of unspecified kidney, except renal pelvis; N10 Acute pyelonephritis; E87.1 Hypo-osmolality and hyponatremia; Y84.9 Medical procedure, unspecified as the cause of abnormal reaction of the patient, or of later complication, without mention of misadventure at the time of the procedure; N20.0 Calculus of kidney; E78.5 Hyperlipidemia, unspecified; E11.65 Type 2 diabetes mellitus with hyperglycemia; D50.9 Iron deficiency anemia, unspecified

== ENCOUNTER → 2019-06-16 09:08 | Outpatient (CLI) | payer OTHER ==
[2019-05-25 09:37] VITALS: BMI 27.4
[~2019-06-16 09:08] MED LIST changes: +LEVAQUIN750 MG PO
== END | disposition home or self-care (01) ==
LOC: D.CT 09:08
PROVIDERS: ATTEND Urology
DX: N20.0 Calculus of kidney (principal)